=== PATIENT | female | born 1995 | race Two or more races ===

== ENCOUNTER 2025-06-08 10:16 | Inpatient (IN) | payer MEDICAID, OTHER ==
[~2025-06-08] VITALS: Ht 152.4 cm; Wt 72.8 kg
[2025-06-08] MEDS: IPRATROPIUM BROM 0.5 MG/2.5ML INH SOL NEB ONE ×2 (11:10→12:46)
[2025-06-08] MEDS: ALBUTEROL SULF 2.5 MG/0.5ML(0.5%) NEB SOLN NEB ONE ×2 (11:10→12:46)
--- NOTE | 2025-06-08 12:12 | ED.PDOC ---
SOB-HPI HPI Comments This is a 29 year-old female who presents to the ED with a chief complaint of cough and wheezing for X1 day. Patient reports using a Resure inhaler with no relief. Patient is currently SPO2 at 94% on RA. There are no further complaints or modifying factors at this time. Chief Complaint: Asthma Time Seen by MD: 11:28 Reviewed notes: Medications, Allergies Information Source: Patient Mode of Arrival: Ambulatory Severity: Moderate Timing: Days Duration: Since onset Context: At Rest, With Light Exertion, With Heavy Exertion Associated Signs and Symptoms: Other (Asthma) Past Medical History PAST MEDICAL HISTORY: Asthma Surgical History: Denies all surgeries NEWBORN HEARING SCREENER History: No Pertinent NEWBORN HEARING SCREENER History Family History Family History: Reviewed,noncontributory to illness, No family hx of Cancer, No family hx of DM, No family hx of Heart flor[place], No family hx of HTN, No family hx ofKidney florinda, No family hx of Liver [place], No family hx of Lung flor[place], No family hx of Stroke Social History Smoker: Non-Smoker Alcohol: Denies ETOH Use Drugs: Denies Drug Use Lives In: Home Constitutional: denies: chills, diaphoresis, fatigue, fever, malaise, sweats, weakness, others EENTM: denies: blurred vision, double vision, ear bleeding, ear discharge, ear drainage, ear pain, ear ringing, eye pain, eye redness, hearing loss, mouth pain, mouth swelling, nasal discharge, nose bleeding, nose congestion, nose pa in, photophobia, tearing, throat pain, throat swelling, voice changes, others Respiratory: reports: SOB at rest, shortness of breath, SOB with excertion; denies: cough, hemoptysis, orthopnea, stridor, wheezing, others Cardiovascular: denies: chest pain, dizzy spells, diaphoresis, Dyspnea on exertion, edema, irregular heart beat, left arm pain, lightheadedness, palpitations, PND, syncope, others Gastrointestinal: denies: abdomen distended, abdominal pain, blood streaked bowels, constipated, diarrhea, dysphagia, difficulty swallowing, hematemesis, melena, nausea, poor appetite, poor fluid intake, rectal bleeding, rectal pain, vomiting, others Genitourinary: denies: abnormal vagina bleeding, burning, dyspareunia, dysuria, flank pain, frequency, hematuria, incontinence, pain, , vagina discharge, urgency, others Neurological: denies: dizziness, fainting, headache, left sided numbness, left sided weakness, numbness, paresthesia, pre-existing deficit, right sided numbness, right sided weakness, seizure, speech problems, tingling, tremors, weakness, others Musculoskeletal: denies: back pain, gout, joint pain, joint swelling, muscle pain, muscle stiffness, neck pain, others Integumetry: denies: bruises, change in color, change in hair/nails, dryness, laceration, lesions, lumps, rash, wounds, others Allergic/Immunocompromised: denies: Difficulty Healing, Frequent Infections, Hives, Itching, others Hematologic/Lymphatic: denies: anemia, blood clots, easy bleeding, easy bruising, swollen glands, others Endocrine: denies: excessive hunger, excessive sweating, excessive thirst, excessive urination, flushing, intolerance to cold, intolerance to heat, unexplained weight gain, unexplained weight loss, others Psychiatric: denies: anxiety, bipolar disorder, depression, hopeless, panic disorder, schizophrenia, sleepless, suicidal, others All Other Systems: Reviewed and Negative Physical Exam General Appearance: Moderate Distress HEENT: Normal ENT Inspection, PERRL/EOMI Neck: Full Range of Motion, Non-Tender, Normal, Normal Inspection Respiratory: Decreased Breath Sounds, Expiration, Inspiration, No Respiratory Distress, Wheezing Cardiovascular: No Edema, No JVD, No Murmur, No Gallop, Normal Peripheral Pulses, Regular Rate/Rhythm Breast Exam: Deferred Gastrointestinal: No Organomegaly, Non Tender, No Pulsatile Mass, Normal Bowel Sounds, Soft Genitalia: Deferred Pelvic: Deferred Rectal: Deferred Extremities: No calf tenderness, Normal capillary refill, Normal inspection, Normal range of motion, Non-tender, No pedal edema Neurologic: Alert, sole scraper II-XII nml as Tested, No Motor Deficits, Normal Affect, Normal Mood, No Sensory Deficits Cerebellar Function: Normal Reflexes: Normal Skin: Dry, Normal Color, Warm Peripheral Pulses: 1+ carotid (R), 1+ carotid (L) Lymphatic: No Adenopathy Was a procedure done? Was a procedure done?: No Differential Dx Differential Diagnosis: Anxiety, Asthma, Bronchitis, Pneumonia, Sinusitis, Allergic Rhinitis, URI X-Ray, Labs, Meds, VS Vital Signs Date Time Temp Pulse Resp B/P (MAP) Pulse Ox O2 Delivery O2 Flow Rate FiO2 06/08/25 15:03 Room Air* 0 21 06/08/25 14:35 92 Room Air 06/08/25 14:35 99.3 117 18 127/74 (91) 95 99.3 06/08/25 13:32 98.4 06/08/25 12:48 16 97 Room Air* 0 21 06/08/25 11:13 18 97 Room Air* 0 06/08/25 10:40 97.9 112 18 133/88 94 97.9 Lab Test 06/08/25 16:15 06/08/25 14:42 Range/Units Lactic Acid Level 3.4 *H 0.4-2.0 mmol/L White Blood Count 16.0 H 4.4-10.8 10^3/uL Red Blood Count 5.39 H 4.0-5.20 10^6/uL Hemoglobin 12.7 12.2-16.2 g/dL Hematocrit 38.7 36.0-46.0 % Mean Corpuscular Volume 71.8 L 80.0-100.0 fL Mean Corpuscular Hemoglobin 23.6 L 28.0-32.0 pg Mean Corpuscular Hemoglobin Concent 32.8 32.0-36.0 g/dL Red Cell Distribution Width 19.9 H 11.8-14.3 % Platelet Count 362 140-450 10^3/uL Mean Platelet Volume 7.9 6.9-10.8 fL Neutrophils (%) (Auto) 93.1 H 37.0-80.0 % Lymphocytes (%) (Auto) 3.7 L 10.0-50.0 % Monocytes (%) (Auto) 2.2 0.0-12.0 % Eosinophils (%) (Auto) 0.7 0.0-7.0 % Basophils (%) (Auto) 0.3 0.0-2.0 % Neutrophils # (Auto) 14.9 H 1.6-8.6 10 ^3/uL Lymphocytes # (Auto) 0.6 0.4-5.4 10 ^3/uL Monocytes # (Auto) 0.4 0-1.3 10 ^3/uL Eosinophils # (Auto) 0.1 0-0.8 10 ^3/uL Basophils # (Auto) 0 0-0.2 10 ^3/uL Nucleated Red Blood Cells 0.3 % Sodium Level 141 136-145 mmol/L Potassium Level 4.0 3.5-5.1 mmol/L Chloride Level 107 98-107 mmol/L Carbon Dioxide Level 21 20-31 mmol/L Anion Gap 13 5-15 Blood Urea Nitrogen 6 L 9-23 mg/dL Creatinine 0.68 0.550-1.02 mg/dL Glomerular Filtration Rate Calc 122 >90 mL/min BUN/Creatinine Ratio 8.8 L 10.0-20.0 Serum Glucose 121 H 74-106 mg/dL Calcium Level 9.5 8.7-10.4 mg/dL Magnesium Level 2.2 1.6-2.6 mg/dL Total Bilirubin 0.5 0.2-1.0 mg/dL Aspartate Amino Transferase (AST) 20 13-40 U/L Alanine Aminotransferase (ALT) 15 7-40 U/L Alkaline Phosphatase 149 H 46-116 U/L Total Protein 7.9 5.7-8.2 g/dL Albumin 5.0 H 3.2-4.8 g/dL Current Medications Medications (Trade) Dose Ordered Sig/Charissa Route Start Time Stop Time Status Last Admin Albuterol (Ventolin Medneb) 5 mg ONCE ONCE NEB 06/08/25 11:15 06/08/25 11:16 DC 06/08/25 11:10 Ipratropium [place] (Atrovent Medneb) 0.5 mg ONCE ONCE NEB 06/08/25 11:15 06/08/25 11:16 DC 06/08/25 11:10 Dexamethasone Sodium Phosphate (Decadron Injection) 6 mg ONCE ONCE IM 06/08/25 12:30 06/08/25 12:31 DC 06/08/25 13:13 Albuterol (Ventolin Medneb) 5 mg ONCE ONCE NEB 06/08/25 12:45 06/08/25 12:46 DC 06/08/25 12:46 Ipratropium [place] (Atrovent Medneb) 0.5 mg ONCE ONCE NEB 06/08/25 12:45 06/08/25 12:46 DC 06/08/25 12:46 Acetaminophen (Tylenol Tablet Or Capsule) 500 mg ONCE ONCE PO 06/08/25 13:15 06/08/25 13:16 DC 06/08/25 13:32 X-Ray, Labs, Meds, VS Comment [facility] patient with a acute exacerbation of asthma not near following primary [place] [id number] with 93% neutrophils normal H&H CMP negative Lactic acid 3.5 EKG pending Chest x-ray does not show any pneumonia Patient will be admitted for further Time of 1ST Reevaluation: 12:15 Reevaluation 1ST: Unchanged Time of 2ND Reevaluation: 15:48 Reevaluation 2ND: Unchanged Patient Education/Counseling: Diagnosis, Treatment, Prognosis Family Education/Counseling: Diagnosis, Treatment, Prognosis, No Family Present SEPSIS Sepsis Screen Date sepsis recognized/suspect: Jun 08, 2025 Time Sepsis recognized/suspect: 1042 Recent Procedure: No On Antibiotic Therapy: No Respiratory Rate >20: No Heart Rate >90: Yes Temp<36 C (96.8 F) or >38.3 C: No SBP <90 or MAP <65 mmHG: No New Acute Mental Status Change: No Is the patient on CPAP, BIPAP,: No Physician Orders Heplock Iv (06/08/25 14:36) Blood Pressure (06/08/25 14:36) Oxygen (06/08/25 14:36) Chest Two Views Routine (06/08/25 14:36) Sodium Chloride 0.9% (06/08/25 14:45) Blood Culture (06/08/25 16:11) Sodium Chloride 0.9% (06/08/25 16:15) Urinalysis (06/08/25 16:11) Ceftriaxone Ivpb Rocephin (06/08/25 17:15) 0.9% Nacl 1 Liter Bolus (06/08/25 17:15) Vital Signs Date Time Temp Pulse Resp B/P (MAP) Pulse Ox O2 Delivery O2 Flow Rate FiO2 06/08/25 15:03 Room Air* 0 21 06/08/25 14:35 92 Room Air 06/08/25 14:35 99.3 117 18 127/74 (91) 95 99.3 06/08/25 13:32 98.4 06/08/25 12:48 16 97 Room Air* 0 21 06/08/25 11:13 18 97 Room Air* 0 21 06/08/25 10:40 97.9 112 18 133/88 94 97.9 Laboratory Tests Test 06/08/25 14:42 06/08/25 16:15 White Blood Count 16.0 10^3/uL (4.4-10.8) H Lactic Acid Level 3.4 mmol/L (0.4-2.0) *H Medications Medications Dose Ordered Sig/Charissa Route Start Time Stop Time Status Last Admin Dose Admin Acetaminophen 500 mg ONCE ONCE PO 06/08/25 13:15 06/08/25 13:16 DC 06/08/25 13:32 Albuterol 5 mg ONCE ONCE NEB 06/08/25 11:15 06/08/25 11:16 DC 06/08/25 11:10 Albuterol 5 mg ONCE ONCE NEB 06/08/25 12:45 06/08/25 12:46 DC 06/08/25 12:46 Dexamethasone Sodium Phosphate 6 mg ONCE ONCE IM 06/08/25 12:30 06/08/25 12:31 DC 06/08/25 13:13 Ipratropium [place] 0.5 mg ONCE ONCE NEB 06/08/25 11:15 06/08/25 11:16 DC 06/08/25 11:10 Ipratropium [place] 0.5 mg ONCE ONCE NEB 06/08/25 12:45 06/08/25 12:46 DC 06/08/25 12:46 Departure 1 Departure Time of Disposition: 15:49 Impression: Primary Impression: Asthma with status asthmaticus Qualified Codes: J45.42 - Moderate persistent asthma with status asthmaticus Disposition: 09 ADMITTED INPATIENT Admit to: [facility] Condition: Serious Critical Care Note Critical Care Time?: No Stability Stability form required: Yes Unstable for transfer: Telemetry monitoring (Telemetry monitoring required), Requires medication (Requires Med for stabilization) Heart Score Heart Score: Heart Score Response (Comments) Value History N/A 0 EKG N/A 0 Age <45 0 Risk Factors 1 or 2 risk factors 1 Troponin N/A 0 Total 1 I personally scribed for VIELKA GARCIA MD ([email or web address]) on 06/08/25 at 12:12. Elec tronically submitted by Dayna Hampton ([facility]). VIELKA GARCIA MD Jun 08, 2025 12:12
[2025-06-08] MEDS: ACETAMINOPHEN 500 MG TAB or CAP PO ONE (13:32)
[2025-06-08 14:53] LABS: Hematocrit 38.7 % (36.0-46.0); Hemoglobin 12.7 g/dL (12.2-16.2); Mean Corpuscular Hemoglobin 23.6 pg (28.0-32.0); Mean Corpuscular Volume 71.8 fL (80.0-100.0); Nucleated Red Blood Cells % 0.3 %
[2025-06-08 15:08] LABS: Alanine Aminotransferase 15 U/L (7-40); Anion Gap 13 (5-15); BUN/Creatinine Ratio 8.8 (10.0-20.0); Bilirubin, Total 0.5 mg/dL (0.2-1.0); Calcium 9.5 mg/dL (8.7-10.4); Carbon Dioxide 21 mmol/L (20-31); Chloride 107 mmol/L (98-107); Magnesium 2.2 mg/dL (1.6-2.6); Potassium 4.0 mmol/L (3.5-5.1); Sodium 141 mmol/L (136-145); Total Protein 7.9 g/dL (5.7-8.2)
[2025-06-08 15:09] LABS: Albumin 5.0 g/dL (3.2-4.8); Alkaline Phosphatase 149 U/L (46-116); Blood Urea Nitrogen 6 mg/dL (9-23); Glucose 121 mg/dL (74-106)
--- NOTE | 2025-06-08 15:10 | DVH ---
XY CHEST TWO VIEWS ROUTINE CLINICAL HISTORY: ASTHMA EXACERBATION COMPARISON: None TECHNIQUE: Frontal and lateral view of the chest was obtained FINDINGS: Lines and Tubes: None Lungs: No focal consolidation. Left basilar atelectasis Pleura: No effusion. No pneumothorax. Cardiomediastinal contours: Unremarkable Bones: No acute osseous abnormality. IMPRESSION: No acute cardiopulmonary disease.
[2025-06-08 16:59] LABS: Lactic Acid w/Reflex 3.4 mmol/L (0.4-2.0)
[2025-06-08] MEDS: SODIUM CHLORIDE 0.9% 1,000 ML IV ONE ×2 (17:20→19:04)
[2025-06-08] MEDS: SODIUM CHLORIDE 0.9% 1,000 ML IVB ONE (17:20)
[2025-06-08 18:16] LABS: Urine Protein, UAD Negative (Negative)
[2025-06-08 18:45] VITALS: PULSE 109; RESP 24; O2SAT 92
[2025-06-08] MEDS ORDERED: ACETAMINOPHEN 325 MG TAB PO PRN (18:45)
[2025-06-08] MEDS ORDERED: ONDANSETRON HCL 4 MG/2 ML VIAL IV PRN (18:45)
[2025-06-08] MEDS ORDERED: HYDROcodone-ACET 5/325MG TAB PO PRN (18:45)
[2025-06-08] MEDS ORDERED: DOCUSATE SOD 100 MG CAP PO PRN (18:45)
[2025-06-08 19:01] VITALS: BP 120/81; PULSE 108; RESP 20; TEMP 98.6; O2SAT 97
[2025-06-08] MEDS: LACTATED RINGER'S 1,000 ML IV ONE (19:05)
[2025-06-08 19:30] VITALS: RESP 26; O2SAT 97
--- NOTE | 2025-06-08 19:55 | DVHHP2 ---
History of Present Illness Reason for Visit: Asthma with status asthmaticus History of Present Illness The patient is a 29-year-old female with past medical history of asthma who presented to [facility] ED with complaint of shortness of breaths for the past 1 day. Patient reports that she has been experiencing difficulty breathing associated with cough, wheezing, increased work of breathing, getting worse that prompted this visit. Patient was seen and evaluated in the ED, laboratory data shows WBC 16.0, platelets 362, sodium 141, potassium 4.0, BUN 6, creatinine 0.68, GFR 122, glucose 121, calcium 9.5, lactic acid 3.4, alkaline phos 149, albumin 5.0, blood pressure 120/81, heart rate 118, temperature 98.6 F, O2 saturation 97% on oxygen. Chest x-ray show no acute cardiopulmonary disease. Please see medication orders section in the computer. On my assessment, patient denied chest pain, no headache, dizziness, diaphoresis, currently on oxygen, no diarrhea, nausea, vomiting, fever, no chills. Patient was admitted for further evaluation and medical management. Past Medical History Asthma Past Surgical History Denies all surgeries Family History Reviewed, noncontributory to the management of this case. Past Social History The patient lives at home, denies smoking, alcohol or illicit drugs abuse. Review of Systems Constitutional: No: Fever, Chills, Sweats, Weakness, Malaise, Other Eyes: No: Pain, Vision change, Conjunctivae inflammation, Eyelid inflammation, Other, Redness ENT: No: Ear pain, Ear discharge, Nose pain, Nose discharge, Nose congestion, Mouth pain, Mouth swelling, Throat pain, Throat swelling, Other Respiratory: Shortness of breath, SOB with excertion, Wheezing, Other (SOB at rest); No: Cough, Dry, Hemoptysis, Pleuritic Pain, Sputum, Wheezing Cardiovascular: No: Chest Pain, Palpitations, Orthopnea, Paroxysmal Noc. Dyspnea, Edema, Lt Headedness, Other Gastrointestinal: No: Nausea, Vomiting, Abdominal Pain, Diarrhea, Constipation, Melena, Hematochezia, Other Genitourinary: No Dysuria, No Frequency, No Incontinence, No Hematuria, No Retention, No Other Musculoskeletal: No: other, neck pain, shoulder pain, arm pain, back pain, hand pain, leg pain, foot pain Skin: No: Rash, Lesions, Jaundice, Bruising, Other Neurological: No: Weakness, Numbness, Incoordination, Change in speech, Confusion, Seizures, Other Allergies: Coded Allergies: Ibuprofen (Verified Allergy, Unknown, 06/08/25) Medications Current Medications Medications Dose Ordered Sig/Charissa Route Start Time Stop Time Status Last Admin Dose Admin Ceftriaxone Sodium 50 ml @ 100 mls/hr DAILY@09 IV 06/09/25 09:00 Levalbuterol HCl 0.625 mg Q6HR NEB 06/09/25 00:00 Methylprednisolone Sodium Succinate 40 mg BID IV 06/08/25 22:00 Famotidine 20 mg DAILY IV 06/09/25 10:00 Acetaminophen/ Hydrocodone Bitart 1 tab Q4HP PRN PO 06/08/25 18:45 Ondansetron HCl 4 mg Q4HP PRN IV 06/08/25 18:45 Docusate Sodium 100 mg BIDPRN PRN PO 06/08/25 18:45 Acetaminophen 650 mg Q6HP PRN PO 06/08/25 18:45 Exam Vital Signs Vital Signs Date Time Temp Pulse Resp B/P (MAP) Pulse Ox O2 Delivery O2 Flow Rate FiO2 06/08/25 19:01 98.6 108 20 120/81 97 0.0 21 98.6 06/08/25 18:45 Room Air* General Appearance: Alert, Oriented X3, Cooperative, No acute distress HEENT: Atraumatic, PERRLA, EOMI, Mucous membr. moist/pink Respiratory: Clear to auscultation, Normal air movement Cardiovascular: Regular rate, Normal S1, Normal S2, No murmurs Abdominal: Normal bowel sounds, Soft, No tenderness, No hepatospenomegaly, No masses Extremities: No clubbing, No cyanosis, No edema, Normal pulses, No tenderness/swelling Skin: No rashes, No breakdown, No significant lesion Neuro: Normal gait, Normal speech, Strength at 5/5 X4 ext, Normal tone, Sensation intact, Cranial nerves 3-12 NL, Reflexes 2+ Psych/Mental Status: Mental status NL, Mood NL Labs/Xrays Labs Test 06/08/25 18:20 06/08/25 18:10 06/08/25 14:42 Range/Units Lactic Acid Level 3.4 *H 0.4-2.0 mmol/L Urine Color Colorless Yellow Urine Clarity Clear Clear Urine pH 6.0 5.0-9.0 Urine Specific Grady 1.013 1.001-1.035 Urine Protein Negative Negative Urine Ketones Negative Negative Urine Blood 3+ H Negative /uL Urine Nitrite Negative Negative Urine Bilirubin Negative Negative Urine Urobilinogen Normal Negative mg/dL Urine Leukocyte Esterase Negative Negative /uL Urine RBC 647 0 - 4 /hpf Urine Microscopic WBC 5 0-5 /HPF Urine Squamous Epithelial Cells Few <5 /hpf Urine Bacteria None seen None Seen /hpf Urine Mucus Few None Seen Urine Glucose Trace Normal mg/dL White Blood Count 16.0 H 4.4-10.8 10^3/uL Red Blood Count 5.39 H 4.0-5.20 10^6/uL Hemoglobin 12.7 12.2-16.2 g/dL Hematocrit 38.7 36.0-46.0 % Mean Corpuscular Volume 71.8 L 80.0-100.0 fL Mean Corpuscular Hemoglobin 23.6 L 28.0-32.0 pg Mean Corpuscular Hemoglobin Concent 32.8 32.0-36.0 g/dL Red Cell Distribution Width 19.9 H 11.8-14.3 % Platelet Count 362 140-450 10^3/uL Mean Platelet Volume 7.9 6.9-10.8 fL Neutrophils (%) (Auto) 93.1 H 37.0-80.0 % Lymphocytes (%) (Auto) 3.7 L 10.0-50.0 % Monocytes (%) (Auto) 2.2 0.0-12.0 % Eosinophils (%) (Auto) 0.7 0.0-7.0 % Basophils (%) (Auto) 0.3 0.0-2.0 % Neutrophils # (Auto) 14.9 H 1.6-8.6 10 ^3/uL Lymphocytes # (Auto) 0.6 0.4-5.4 10 ^3/uL Monocytes # (Auto) 0.4 0-1.3 10 ^3/uL Eosinophils # (Auto) 0.1 0-0.8 10 ^3/uL Basophils # (Auto) 0 0-0.2 10 ^3/uL Nucleated Red Blood Cells 0.3 % Sodium Level 141 136-145 mmol/L Potassium Level 4.0 3.5-5.1 mmol/L Chloride Level 107 98-107 mmol/L Carbon Dioxide Level 21 20-31 mmol/L Anion Gap 13 5-15 Blood Urea Nitrogen 6 L 9-23 mg/dL Creatinine 0.68 0.550-1.02 mg/dL Glomerular Filtration Rate Calc 122 >90 mL/min BUN/Creatinine Ratio 8.8 L 10.0-20.0 Serum Glucose 121 H 74-106 mg/dL Calcium Level 9.5 8.7-10.4 mg/dL Magnesium Level 2.2 1.6-2.6 mg/dL Total Bilirubin 0.5 0.2-1.0 mg/dL Aspartate Amino Transferase (AST) 20 13-40 U/L Alanine Aminotransferase (ALT) 15 7-40 U/L Alkaline Phosphatase 149 H 46-116 U/L Total Protein 7.9 5.7-8.2 g/dL Albumin 5.0 H 3.2-4.8 g/dL PATIENT: JAMILAH ZUÑIGA ACCT: [id number] UNIT: [id number] : 1995 LOC: ER ROOM / BED: / AGE / SEX: 29 / F ADM STATUS: REG ER SERVICE 1436 ORDERING PHYSICIAN: VIELKA GARCIA MD PROCEDURE(s): CXR2 - CHEST TWO VIEWS ROUTINE REASON: ASTHMA EXACERBATION ORDER NUMBER(s): [id number], ACCESSION NUMBER(s): [id number] CHEST TWO VIEWS ROUTINE CLINICAL HISTORY: ASTHMA EXACERBATION COMPARISON: None TECHNIQUE: Frontal and lateral view of the chest was obtained FINDINGS: Lines and Tubes: None Lungs: No focal consolidation. Left basilar atelectasis Pleura: No effusion. No pneumothorax. Cardiomediastinal contours: Unremarkable Bones: No acute osseous abnormality. IMPRESSION: No acute cardiopulmonary disease. SEPSIS Sepsis Screen Date sepsis recognized/suspect: Jun 08, 2025 Time Sepsis recognized/suspect: 1844 Recent Procedure: No On Antibiotic Therapy: No Respiratory Rate >20: Yes Heart Rate >90: Yes Temp<36 C (96.8 F) or >38.3 C: No SBP <90 or MAP <65 mmHG: No New Acute Mental Status Change: No Is the patient on CPAP, BIPAP,: No Physician Orders Heplock Iv (06/08/25 14:36) Blood Pressure (06/08/25 14:36) Oxygen (06/08/25 14:36) Chest Two Views Routine (06/08/25 14:36) Sodium Chloride 0.9% (06/08/25 14:45) Blood Culture (06/08/25 16:11) Electrocardigram (06/08/25 17:03) Ceftriaxone 1gm/50ml (Rocephin) (06/09/25 09:00) Levalbuterol Hcl (Xopenex Medneb) (06/09/25 00:00) Methylprednisolone Sod Succ (Solu Medrol (06/08/25 22:00) Famotidine Injection (Pepcid Injection) (06/09/25 10:00) Allergies (06/08/25 18:45) Code Status (06/08/25 18:45) Oxygen Per Hour (06/08/25 18:45) Hydrocodone-Acet 5/325mg Tab ([place] 5/32 (06/08/25 18:45) Ondansetron Hcl (Zofran) (06/08/25 18:45) Docusate Sodium Capsule (Colace Capsule) (06/08/25 18:45) Complete Blood Count (06/09/25 04:00) Comprehensive Metabolic Panel (06/09/25 04:00) Cardiac Diet-2gna,Lofat,Lochol (06/09/25 Breakfast) Condition: Serious (06/08/25 18:45) Acetaminophen Tablet (Tylenol Tablet) (06/08/25 18:45) Bedrest With Bathroom Privileg (06/08/25 18:45) Sequential Compression Device (06/08/25 ) Light Industrial Supervisor (06/08/25 ) Vital Signs Date Time Temp Pulse Resp B/P (MAP) Pulse Ox O2 Delivery O2 Flow Rate FiO2 06/08/25 19:01 98.6 108 20 120/81 97 0.0 21 98.6 06/08/25 18:45 109 24 92 Room Air* 0 21 06/08/25 18:45 99.0 109 24 120/78 (92) 92 99.0 06/08/25 18:36 20 96 Room Air 06/08/25 18:36 98.6 117 20 120/81 (94) 97 98.6 06/08/25 17:06 98.2 118 20 117/80 (92) 96 98.2 06/08/25 16:51 94 06/08/25 15:03 Room Air* 0 21 06/08/25 14:35 92 Room Air 06/08/25 14:35 99.3 117 18 127/74 (91) 95 99.3 06/08/25 13:32 98.4 06/08/25 12:48 16 97 Room Air* 0 21 Laboratory Tests Test 06/08/25 14:42 06/08/25 16:15 06/08/25 18:20 White Blood Count 16.0 10^3/uL (4.4-10.8) H Lactic Acid Level 3.4 mmol/L (0.4-2.0) *H 3.4 mmol/L (0.4-2.0) *H Medications Medications Dose Ordered Sig/Charissa Route Start Time Stop Time Status Last Admin Dose Admin Acetaminophen 500 mg ONCE ONCE PO 06/08/25 13:15 06/08/25 13:16 DC 06/08/25 13:32 500 MG Albuterol 5 mg ONCE ONCE NEB 06/08/25 11:15 06/08/25 11:16 DC 06/08/25 11:10 5 MG Albuterol 5 mg ONCE ONCE NEB 06/08/25 12:45 06/08/25 12:46 DC 06/08/25 12:46 5 MG Ceftriaxone Sodium 50 ml @ 100 mls/hr ONCE ONCE IV 06/08/25 17:15 06/08/25 17:44 DC 06/08/25 17:20 100 MLS/HR Dexamethasone Sodium Phosphate 6 mg ONCE ONCE IM 06/08/25 12:30 06/08/25 12:31 DC 06/08/25 13:13 6 MG Ipratropium [place] 0.5 mg ONCE ONCE NEB 06/08/25 11:15 06/08/25 11:16 DC 06/08/25 11:10 0.5 MG Ipratropium [place] 0.5 mg ONCE ONCE NEB 06/08/25 12:45 06/08/25 12:46 DC 06/08/25 12:46 0.5 MG Lactated Ringer's 1,000 ml @ 1,000 mls/hr Q1H ONCE IV 06/08/25 18:45 06/08/25 19:44 DC 06/08/25 19:05 1,000 MLS/HR Sodium Chloride 1,000 ml @ 150 mls/hr Q6H40M ONCE IV 06/08/25 14:45 06/08/25 21:24 06/08/25 19:04 150 MLS/HR Sodium Chloride 1,000 ml @ 1,000 mls/hr Q1H ONCE IV 06/08/25 16:15 06/08/25 17:14 DC 06/08/25 17:20 1,000 MLS/HR Sodium Chloride 1,000 ml @ 1,000 mls/hr Q1H ONCE IVB 06/08/25 17:15 06/08/25 18:14 DC 06/08/25 17:20 1,000 MLS/HR Assessment/Plan Assessment/Plan Asthma with status asthmaticus Leukocytosis, unspecified Elevated lactic acid level Moderate persistent asthma with status asthmaticus Plan 1. Admit to telemetry unit 2. Breathing treatment 3. Pain control management 4. IV antibiotic management 5. Management of fluids and electrolytes 6. Consultation for hospitalist 7. Diagnostic test chest x-ray 8. DVT prophylaxis-on SCDs 9. Repeat labs CBC, CMP in a.m. 10. Home medication reviewed and reconciled 11. Continue with current medical management 12. Treatment plan discussed with patient and RN. Patient verbalized understanding. Plan discussed with: Patient, Other (RN) My Orders Orders - LE GALLARDO DNP Procedure Category Date Status Time Ceftriaxone 1gm/50ml PHA 06/09/25 In Process (Rocephin) 09:00 Levalbuterol Hcl PHA 06/09/25 In Process (Xopenex Medneb) 00:00 Methylprednisolone PHA 06/08/25 In Process Sod Succ (Solu Medrol 22:00 Famotidine Injection PHA 06/09/25 In Process (Pepcid Injection) 10:00 Allergies PEPE 06/08/25 In Process 18:45 Code Status CODE 06/08/25 Transmitted 18:45 Oxygen Per Hour RT 06/08/25 Transmitted 18:45 Hydrocodone-Acet PHA 06/08/25 In Process 5/325mg Tab ([place] 18:45 Ondansetron Hcl PHA 06/08/25 In Process (Zofran) 18:45 Docusate Sodium PHA 06/08/25 In Process Capsule (Colace 18:45 Complete Blood Count LAB 06/09/25 Verified 04:00 Comprehensive LAB 06/09/25 Verified Metabolic Panel 04:00 Cardiac DIET 06/09/25 Transmitted Diet-2gna,Lofat,Lochol Breakfast Condition: Serious PEPE 06/08/25 In Process 18:45 Acetaminophen Tablet PHA 06/08/25 In Process (Tylenol Tablet) 18:45 Bedrest With Bathroom PEPE 06/08/25 In Process Privileg 18:45 Sequential PEPE 06/08/25 In Process Compression Device Problem List: (1) Asthma with status asthmaticus (2) Leukocytosis, unspecified (3) Elevated lactic acid level (4) Moderate persistent asthma with status asthmaticus Date of Service: Jun 08, 2025 Billing Provider: LE GALLARDO DNP Common Visit Codes: 76465-[id number] INP/OBS CARE (HIGH) LE GALLARDO DNP Jun 08, 2025 19:55
[2025-06-08] MEDS ORDERED: MORPHINE SULFATE INJ 2 MG/ml SYRG IV PRN (20:00)
[2025-06-08] MEDS ORDERED: NITROGLYCERIN 0.4 MG SL TAB SL PRN (20:00)
[2025-06-08] MEDS: LEVALBUTEROL HCL 1.25 MG/3 ML NEB NEB ONE (20:46)
[2025-06-08 22:25] LABS: Lactic Acid w/Reflex 2.3 mmol/L (0.4-2.0)
[2025-06-08] MEDS: methylPREDNISolone SOD SUCC 40 MG/ML VL IV SCH (22:48)
[2025-06-08 22:52] VITALS: RESP 18
[2025-06-09] VITALS (17 sets, daily range): BP systolic 98–114; BP diastolic 58–83; PULSE 98–116; RESP 16–18; TEMP 97.2–98.3; O2SAT 93–100
[2025-06-09] MEDS: LEVALBUTEROL HCL 1.25 MG/3 ML NEB NEB SCH
[2025-06-09 07:02] LABS: Nucleated Red Blood Cells % 0.0 %
[2025-06-09 07:05] LABS: Hematocrit 36.9 % (36.0-46.0); Hemoglobin 12.1 g/dL (12.2-16.2); Mean Corpuscular Hemoglobin 23.7 pg (28.0-32.0); Mean Corpuscular Volume 72.5 fL (80.0-100.0)
[2025-06-09 07:23] LABS: Alanine Aminotransferase 13 U/L (7-40); Albumin 4.4 g/dL (3.2-4.8); Anion Gap 12 (5-15); BUN/Creatinine Ratio 11.3 (10.0-20.0); Calcium 9.5 mg/dL (8.7-10.4); Potassium 4.2 mmol/L (3.5-5.1); Sodium 140 mmol/L (136-145); Total Protein 7.3 g/dL (5.7-8.2)
[2025-06-09 07:24] LABS: Bilirubin, Total 0.6 mg/dL (0.2-1.0)
[2025-06-09 07:37] LABS: Alkaline Phosphatase 129 U/L (46-116); Blood Urea Nitrogen 7 mg/dL (9-23); Carbon Dioxide 19 mmol/L (20-31); Chloride 109 mmol/L (98-107); Glucose 144 mg/dL (74-106)
[2025-06-09] MEDS: FAMOTIDINE (10MG/ML) 2ML VL IV SCH (09:05)
--- NOTE | 2025-06-09 12:43 | DVHPN2 ---
Subjective The patient seen and examined at bedside. Still have shortness of breath but feel better. Reviewed: Care Plan, H&P, Labs, Medications, Previous Orders, Radiology Changes from previous H/P or p: No Changes Eyes: No Pain, No Vision change, No Conjunctivae inflammation, No Eyelid inflammation, No Other, No Redness ENT: No Ear pain, No Ear discharge, No Nose pain, No Nose discharge, No Nose congestion, No Mouth pain, No Mouth swelling, No Throat pain, No Throat swelling, No Other Cardiovascular: No Chest Pain, No Palpitations, No Orthopnea, No Paroxysmal Noc. Dyspnea, No Edema, No Lt Headedness, No Other Respiratory: No Cough, No Dry; Shortness of breath, SOB with excertion, W heezing; No Hemoptysis, No Pleuritic Pain, No Sputum; Other (SOB at rest) Gastrointestinal: No Nausea, No Vomiting, No Abdominal Pain, No Diarrhea, No Constipation, No Melena, No Hematochezia, No Other Genitourinary: No Dysuria, No Frequency, No Incontinence, No Hematuria, No Retention, No Other Musculoskeletal: No other, No neck pain, No shoulder pain, No arm pain, No back pain, No hand pain, No leg pain, No foot pain Skin: No Rash, No Lesions, No Jaundice, No Bruising, No Other Objective Vitals Vital Signs Date Time Temp Pulse Resp B/P (MAP) Pulse Ox O2 Delivery O2 Flow Rate FiO2 06/09/25 12:40 98.3 109 17 98/62 (74) 94 98.3 06/09/25 10:00 Room Air 0.0 06/09/25 10:00 21 Intake/Output Intake and Output 06/09/25 06:59 Intake Total 1950 ml Balance 1950 ml Intake Oral 0 ml IV Total 1950 ml General Appearance: Alert, Oriented X3, Cooperative, mild distress HEENT: Atraumatic, PERRLA, EOMI, Mucous membr. moist/pink Neck: Supple Lungs: Clear to auscultation, Normal air movement Cardiovascular: Regular rate, Normal S1, Normal S2, No murmurs, Gallops, Rubs Abdomen: Normal bowel sounds, Soft, No tenderness Neuro: Cranial nerves 3-12 NL Psych/Mental Status: Mental status NL Medications Current Medications Medications Dose Ordered Sig/Charissa Route Start Time Stop Time Status Last Admin Dose Admin Ceftriaxone Sodium 50 ml @ 100 mls/hr DAILY@09 IV 06/09/25 09:00 06/09/25 09:05 100 MLS/HR Levalbuterol HCl 0.625 mg Q6HR NEB 06/09/25 00:00 06/09/25 07:56 0.625 MG Methylprednisolone Sodium Succinate 40 mg BID IV 06/08/25 22:00 06/09/25 09:06 40 MG Famotidine 20 mg DAILY IV 06/09/25 10:00 06/09/25 09:05 20 MG Acetaminophen/ Hydrocodone Bitart 1 tab Q4HP PRN PO 06/08/25 18:45 Ondansetron HCl 4 mg Q4HP PRN IV 06/08/25 18:45 Docusate Sodium 100 mg BIDPRN PRN PO 06/08/25 18:45 Acetaminophen 650 mg Q6HP PRN PO 06/08/25 18:45 Nitroglycerin 0.4 mg Q5MINP PRN SL 06/08/25 20:00 Morphine Sulfate 2 mg Q30M PRN IV 06/08/25 20:00 Laboratory Results Laboratory Tests 06/09/25 06:25 Chemistry Test 06/08/25 14:42 06/09/25 06:25 Albumin 5.0 g/dL (3.2-4.8) H 4.4 g/dL (3.2-4.8) Calcium Level 9.5 mg/dL (8.7-10.4) 9.5 mg/dL (8.7-10.4) Magnesium Level 2.2 mg/dL (1.6-2.6) Total Protein 7.9 g/dL (5.7-8.2) 7.3 g/dL (5.7-8.2) LFT Test 06/08/25 14:42 06/09/25 06:25 Alanine Aminotransferase (ALT) 15 U/L (7-40) 13 U/L (7-40) Alkaline Phosphatase 149 U/L (46-116) H 129 U/L (46-116) H Aspartate Amino Transferase (AST) 20 U/L (13-40) 13 U/L (13-40) Total Bilirubin 0.5 mg/dL (0.2-1.0) 0.6 mg/dL (0.2-1.0) Urinalysis Test 06/08/25 18:10 Urine Color Colorless (Yellow) Urine Clarity Clear (Clear) Urine pH 6.0 (5.0-9.0) Urine Specific [place] 1.013 (1.001-1.035) Urine Protein Negative (Negative) Urine Ketones Negative (Negative) Urine Blood 3+ /uL (Negative) H Urine Nitrite Negative (Negative) Urine Bilirubin Negative (Negative) Urine Urobilinogen Normal mg/dL (Negative) Urine Leukocyte Esterase Negative /uL (Negative) Urine RBC 647 /hpf (0 - 4) Urine Microscopic WBC 5 /HPF (0-5) Urine Squamous Epithelial Cells Few /hpf (<5) Urine Bacteria None seen /hpf (None Seen) Urine Mucus Few (None Seen) Urine Glucose Trace mg/dL (Normal) Labs and/or images reviewed: Labs reviewed by me Assessment/Plan Assessment/Plan Asthma with status asthmaticus Leukocytosis, unspecified Elevated lactic acid level Moderate persistent asthma with status asthmaticus Plan Continue current management Continue IV antibiotic, also will add PO azithromax Continue bronchodilator PRN Continue IV solumedrol. Plan discussed with: Patient Date of Service: Jun 09, 2025 Billing Provider: DAVE KENNEY MD Common Visit Codes: [id number] INP/OBS CARE(HIGH) DAVE KENNEY MD Jun 09, 2025 12:43
[2025-06-10] VITALS (14 sets, daily range): BP systolic 106–113; BP diastolic 60–75; PULSE 87–112; RESP 16–20; TEMP 36.6; O2SAT 94–100
[2025-06-10 06:32] LABS: Hemoglobin 11.9 g/dL (12.2-16.2); Mean Corpuscular Hemoglobin 23.8 pg (28.0-32.0); Nucleated Red Blood Cells % 0.0 %
[2025-06-10 06:35] LABS: Hematocrit 36.6 % (36.0-46.0); Mean Corpuscular Volume 73.2 fL (80.0-100.0)
[2025-06-10 06:53] LABS: Anion Gap 13 (5-15); Carbon Dioxide 20 mmol/L (20-31); Potassium 4.6 mmol/L (3.5-5.1); Sodium 141 mmol/L (136-145)
[2025-06-10 06:54] LABS: Calcium 9.3 mg/dL (8.7-10.4)
[2025-06-10 06:56] LABS: Chloride 108 mmol/L (98-107)
[2025-06-10 06:59] LABS: BUN/Creatinine Ratio 23.3 (10.0-20.0); Blood Urea Nitrogen 14 mg/dL (9-23)
[2025-06-10 07:20] LABS: Glucose 146 mg/dL (74-106)
[2025-06-10] MEDS: AZITHROMYCIN 250 MG TAB PO SCH (08:42)
[2025-06-10] MEDS ORDERED: DOXY100C79 PO (14:21)
[2025-06-10] MEDS ORDERED: PRED20TA2 PO (14:21)
--- NOTE | 2025-06-10 14:27 | DVHDS2 ---
Discharge Summary Date of Admission Jun 08, 2025 at 19:54 Date of Discharge: Jun 10, 2025 Admitting Diagnosis Status asthmaticus Labs/Diagnostic Data: Laboratory Results Test 06/10/25 05:25 06/09/25 06:25 06/08/25 22:59 06/08/25 18:10 White Blood Count 16.8 10^3/uL (4.4-10.8) Red Blood Count 5.00 10^6/uL (4.0-5.20) Hemoglobin 11.9 g/dL (12.2-16.2) Hematocrit 36.6 % (36.0-46.0) Mean Corpuscular Volume 73.2 fL (80.0-100.0) Mean Corpuscular Hemoglobin 23.8 pg (28.0-32.0) Mean Corpuscular Hemoglobin Concent 32.6 g/dL (32.0-36.0) Red Cell Distribution Width 20.9 % (11.8-14.3) Platelet Count 358 10^3/uL (140-450) Mean Platelet Volume 8.4 fL (6.9-10.8) Neutrophils (%) (Auto) 89.1 % (37.0-80.0) Lymphocytes (%) (Auto) 8.2 % (10.0-50.0) Monocytes (%) (Auto) 2.4 % (0.0-12.0) Eosinophils (%) (Auto) 0.1 % (0.0-7.0) Basophils (%) (Auto) 0.2 % (0.0-2.0) Neutrophils # (Auto) 15.0 10 ^3/uL (1.6-8.6) Lymphocytes # (Auto) 1.4 10 ^3/uL (0.4-5.4) Monocytes # (Auto) 0.4 10 ^3/uL (0-1.3) Eosinophils # (Auto) 0 10 ^3/uL (0-0.8) Basophils # (Auto) 0 10 ^3/uL (0-0.2) Nucleated Red Blood Cells 0.0 % Sodium Level 141 mmol/L (136-145) Potassium Level 4.6 mmol/L (3.5-5.1) Chloride Level 108 mmol/L (98-107) Carbon Dioxide Level 20 mmol/L (20-31) Anion Gap 13 (5-15) Blood Urea Nitrogen 14 mg/dL (9-23) Creatinine 0.60 mg/dL (0.550-1.02) Glomerular Filtration Rate Calc 126 mL/min (>90) BUN/Creatinine Ratio 23.3 (10.0-20.0) Serum Glucose 146 mg/dL (74-106) Calcium Level 9.3 mg/dL (8.7-10.4) Platelet Estimate Adequate Hypochromasia (manual) Moderate Microcytosis Moderate Total Bilirubin 0.6 mg/dL (0.2-1.0) Aspartate Amino Transferase (AST) 13 U/L (13-40) Alanine Aminotransferase (ALT) 13 U/L (7-40) Alkaline Phosphatase 129 U/L (46-116) Total Protein 7.3 g/dL (5.7-8.2) Albumin 4.4 g/dL (3.2-4.8) Lactic Acid Level 2.3 mmol/L (0.4-2.0) Urine Color Colorless (Yellow) Urine Clarity Clear (Clear) Urine pH 6.0 (5.0-9.0) Urine Specific [place] 1.013 (1.001-1.035) Urine Protein Negative (Negative) Urine Ketones Negative (Negative) Urine Blood 3+ /uL (Negative) Urine Nitrite Negative (Negative) Urine Bilirubin Negative (Negative) Urine Urobilinogen Normal mg/dL (Negative) Urine Leukocyte Esterase Negative /uL (Negative) Urine RBC 647 /hpf (0 - 4) Urine Microscopic WBC 5 /HPF (0-5) Urine Squamous Epithelial Cells Few /hpf (<5) Urine Bacteria None seen /hpf (None Seen) Urine Mucus Few (None Seen) Urine Glucose Trace mg/dL (Normal) Test 06/08/25 14:42 Magnesium Level 2.2 mg/dL (1.6-2.6) Other Laboratory Tests 06/10/25 05:25 Brief Hx & Hospital Course: History of Present Illness The patient is a 29-year-old female with past medical history of asthma who presented to [facility] ED with complaint of shortness of breaths for the past 1 day. Patient reports that she has been experiencing difficulty breathing associated with cough, wheezing, increased work of breathing, getting worse that prompted this visit. Patient was seen and evaluated in the ED, laboratory data shows WBC 16.0, platelets 362, sodium 141, potassium 4.0, BUN 6, creatinine 0.68, GFR 122, glucose 121, calcium 9.5, lactic acid 3.4, alkaline phos 149, albumin 5.0, blood pressure 120/81, heart rate 118, temperature 98.6 F, O2 saturation 97% on oxygen. Chest x-ray show no acute cardiopulmonary disease. Please see medication orders section in the computer. On my assessment, patient denied chest pain, no headache, dizziness, diaphoresis, currently on oxygen, no diarrhea, nausea, vomiting, fever, no chills. Patient was admitted for further evaluation and medical management. Course of hospitalization: Patient was started on IV Solu-Medrol, bronchodilators, as well as empiric antibiotic therapy. Patient's wheezing has been resolved. 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 Patient will be discharged home. She will be continued on antibiotic therapy with doxycycline 100 mg p.o. b.i.d.. She will also be provided prednisone 40 mg p.o. daily for additional five days. Patient was agreeable with discharge plan. All questions answered. Physical examination General: Alert and Oriented x3. No acute distress. Well-nourished. Eyes: EOMI. Anicteric. HENT: Moist mucous membranes. Lungs: Clear to auscultation bilaterally. No accessory muscle use. Cardiovascular: Regular rate and rhythm. No murmur. No JVD. Abdomen: Soft, non-tender and non-distended. No palpable masses. Extremities: No edema. Non-tender. Skin: No rashes or lesions. Warm. Neurologic: No focal neurological deficits. CN II-XII grossly intact, but not individually tested. Psychiatric: Cooperative. Appropriate mood and affect. Total time spent with patient discussing and formulating plan of care: 35 minutes. This medical document was created using an electronic medical record system with [employer] dictation system. Although this document has been carefully reviewed, there may still be some phonetic and typographical errors. These areas are purely typographical due to imperfections of the software programs, and do not reflect any compromise in the patient's medical care. Condition at Discharge: Fair Final Diagnosis/Problems List Acute respiratory failure Acute has been exacerbation Obesity -sirs without infection Lactic acidosis Discharge Disposition: Home Discharge Instruct/Medications Diet: Regular Activity: Light activity Medications: Doxycycline 100 mg p.o. b.i.d. x5 days Prednisone 40 mg p.o. daily x5 days Scheduled Doxycycline (Monohydrate) (Doxycycline), 100 MG PO BID Prednisone (Prednisone), 40 MG PO DAILY 36 Discharge Statement: "Patient was advised to return to the ER or call 911 if any headaches, dizziness, shortness of breath, chest pain, abdominal pain, bleeding, fevers, or worsening of medical condition. Patient was counseled about treatment plan, medications, possible side effects, patientverbalized understanding. All questions were answered to the best of my ability. This discharge took greater then 30 minutes in planning, reviewing documentation, counseling the patient, and discussing with other team members." ASSESSMENT ASSESSMENT Assessment Date of Service: Jun 10, 2025 Billing Provider: MICHAEL CHRISTIAN NP Common Visit Codes: [id number] INP/OBS CARE(HIGH) MICHAEL CHRISTIAN NP Jun 10, 2025 14:27
[2025-06-10] MEDS ORDERED: ALBUAER3 IN (15:56)
== END 2025-06-10 16:40 | disposition home or self-care (01) | DRG 133 ==
LOC: ER 10:16 → TELE-CENTR 19:54 → OVERFLOW 19:54 → TELE-CENTR 22:00
PROVIDERS: ADMIT Nurse Practitioner Acute Care; ATTEND Nurse Practitioner Acute Care
DX: J96.01 Acute respiratory failure with hypoxia (principal); E87.20 Acidosis, unspecified; J45.42 Moderate persistent asthma with status asthmaticus; R65.10 Systemic inflammatory response syndrome (SIRS) of non-infectious origin without acute organ dysfunction; Z68.31 Body mass index [BMI] 31.0-31.9, adult; E66.9 Obesity, unspecified; D72.829 Elevated white blood cell count, unspecified; Z88.6 Allergy status to analgesic agent; R71.8 Other abnormality of red blood cells
CPT/HCPCS: 36415; 71046; 80048; 80053; 81001; 83605; 83735; 85025; 87040; 94640; 96361; 96365; 96372; G0378; J1100; J3490